=== PATIENT | female | born 1990 | race African-American/Black ===

== ENCOUNTER 2016-12-05 08:35 | Emergency (ER) | payer MEDICAID, OTHER ==
[~2016-12-05] VITALS: Ht 162.6 cm; Wt 74.8 kg
[2016-12-05 09:07] VITALS: BP 102/63
== END 2016-12-05 09:44 | disposition home or self-care (01) ==
LOC: ER 08:37
DX: J02.9 Acute pharyngitis, unspecified (principal)

== ENCOUNTER 2019-06-25 16:19 | Emergency (ER) | payer MEDICAID ==
[~2019-06-25] VITALS: Ht 162.6 cm; Wt 86.2 kg
[2019-06-25 17:20] LABS: Urine Bacteria NONE SEEN /hpf (None Seen); Urine Blood Negative /uL (Negative); Urine Specific Gravity 1.007 (1.001-1.035); Urine WBC 2 /hpf (0 - 5)
[2019-06-25 17:42] LABS: Basophils # (auto) 0.1 uL; Basophils % (auto) 0.7 % (0.0-2.0); Eosinophils # (auto) 0.1 uL; Eosinophils % (auto) 1.4 % (0.0-7.0); Hematocrit 41.3 % (36.0-46.0); Hemoglobin 13.6 g/dL (12.2-16.2); Lymphocytes # (auto) 2.2 uL; Lymphocytes % (auto) 24.3 % (10.0-50.0); Mean Corpuscular Hemoglobin 27.3 pg (28.0-32.0); Mean Corpuscular Volume 82.6 fL (80.0-100.0); Monocytes # (auto) 0.9 uL; Monocytes % (auto) 9.7 % (0.0-12.0); Neutrophils # (auto) 5.7 uL; Neutrophils % (auto) 63.9 % (37.0-80.0); Nucleated Red Blood Cells % 0.1 %; Platelet Count (auto) 267 10^3/uL (140-450); Red Cell Distribution Width 13.6 % (11.8-14.3)
[2019-06-25 18:27] VITALS: BP 120/68
== END 2019-06-25 19:07 | disposition home or self-care (01) ==
LOC: ER 16:29
DX: N39.0 Urinary tract infection, site not specified (principal); Z32.02 Encounter for pregnancy test, result negative
CPT/HCPCS: 36415; 81001; 81025; 84702; 85025

== ENCOUNTER 2019-12-22 14:05 | Observation (INO) | payer MEDICAID | END 2019-12-22 16:40 | disposition home or self-care (01) | DRG 566 | LOC: LDRP 14:05 | PROVIDERS: ADMIT Specialist; ATTEND Specialist | DX: O99.342 Other mental disorders complicating pregnancy, second trimester (principal); O26.893 Other specified pregnancy related conditions, third trimester; G47.00 Insomnia, unspecified; R11.0 Nausea; O99.512 Diseases of the respiratory system complicating pregnancy, second trimester; R06.02 Shortness of breath; Z3A.21 21 weeks gestation of pregnancy | CPT/HCPCS: 59025; 76815; 81002; G0378 ==

== ENCOUNTER 2020-03-07 15:15 | Observation (INO) | payer MEDICAID ==
[2020-03-07] MEDS ORDERED: DEXT1LIQ99 PO (15:51)
[2020-03-07] MEDS ORDERED: PREN-96 PO (15:51)
[2020-03-07] MEDS ORDERED: DOXY25TA9 PO (15:51)
[2020-03-07] MEDS ORDERED: ACET1CAP14 PO (15:51)
== END 2020-03-07 19:00 | disposition home or self-care (01) ==
LOC: LDRP 15:15
PROVIDERS: ADMIT Obstetrics & Gynecology; ATTEND Obstetrics & Gynecology
DX: O98.513 Other viral diseases complicating pregnancy, third trimester (principal); U07.1 COVID-19; O36.8130 Decreased fetal movements, third trimester, not applicable or unspecified; Z3A.32 32 weeks gestation of pregnancy
CPT/HCPCS: 36415; 59025; 76818; 87426; G0378; 81002

== ENCOUNTER 2020-03-07 19:29 | Inpatient (IN) | payer MEDICAID ==
[~2020-03-07] VITALS: Ht 162.6 cm; Wt 100.7 kg
[~2020-03-07 19:29] MED LIST: ACET1CAP14 PO; DEXT1LIQ99 PO; DOXY25TA9 PO; PREN-96 PO
[2020-03-07] MEDS ORDERED: SODIUM CHLORIDE 0.9% 1,000 ML IV ONE (19:45)
[2020-03-07] MEDS ORDERED: ACETAMINOPHEN 325 MG TAB PO ONE (19:45)
[2020-03-07 21:17] LABS: Urine WBC None Seen /hpf (0 - 5)
[2020-03-07 21:22] LABS: Basophils # (auto) 0 10 ^3/uL (0-0.2); Basophils % (auto) 0.2 % (0.0-2.0); Eosinophils # (auto) 0 10 ^3/uL (0-0.8); Eosinophils % (auto) 0.1 % (0.0-7.0); Hematocrit 36.8 % (36.0-46.0); Hemoglobin 12.2 g/dL (12.2-16.2); Lymphocytes # (auto) 0.9 10 ^3/uL (0.4-5.4); Lymphocytes % (auto) 11.9 % (10.0-50.0); Mean Corpuscular Hemoglobin 28.1 pg (28.0-32.0); Mean Corpuscular Hgb Conc. 33.2 g/dL (32.0-36.0); Mean Corpuscular Volume 84.5 fL (80.0-100.0); Monocytes # (auto) 0.8 10 ^3/uL (0-1.3); Monocytes % (auto) 10.2 % (0.0-12.0); Neutrophils # (auto) 6.1 10 ^3/uL (1.6-8.6); Neutrophils % (auto) 77.6 % (37.0-80.0); Nucleated Red Blood Cells % 0.2 %; Platelet Count (auto) 226 10^3/uL (140-450); Red Blood Cells 4.36 10^6/uL (4.0-5.20); White Blood Cell 7.8 10^3/uL (4.4-10.8)
[2020-03-07 21:47] LABS: Albumin 2.8 g/dL (3.4-5.0); Calcium 8.1 mg/dL (8.5-10.1)
[2020-03-07 21:52] LABS: BUN/Creatinine Ratio 2.9; Bilirubin, Total 0.3 mg/dL (0.2-1.0); Total Protein 7.1 g/dL (6.4-8.2)
[2020-03-07 21:58] LABS: Urine Bacteria NONE SEEN /hpf (None Seen); Urine Blood TRACE /uL (Negative); Urine Mucus FEW (None Seen); Urine Specific Gravity 1.029 (1.001-1.035)
[2020-03-07 22:20] LABS: CRP High Sensitivity 2.39 mg/dL (< 0.3)
[2020-03-07] MEDS ORDERED: AZITHROMYCIN 500MG/ 250ML 250 ML IV ONE (22:30)
[2020-03-07] MEDS ORDERED: SODIUM CHLORIDE 0.9% 1,000 ML IV SCH (23:32)
[2020-03-07] MEDS ORDERED: ONDANSETRON HCL 4 MG/2 ML VIAL IV PRN (23:45)
[2020-03-07] MEDS ORDERED: ACETAMINOPHEN 325 MG TAB PO PRN (23:45)
[2020-03-07] MEDS ORDERED: DOCUSATE SOD 100 MG CAP PO PRN (23:45)
[2020-03-08] MEDS ORDERED: POTASSIUM EFFERVESENT TAB 25 MEQ PO ONE (01:30)
[2020-03-08 01:51] VITALS: BP 124/67
[2020-03-08] MEDS: ACETAMINOPHEN 500 MG TAB PO PRN ×4 (02:33→20:50)
[2020-03-08 05:00] VITALS: BP 106/47
[2020-03-08] MEDS: ALBUTEROL SULF HFA 90MCG INH 200DOSE IN SCH ×3 (06:00→14:17)
[2020-03-08 07:34] LABS: Basophils # (auto) 0 10 ^3/uL (0-0.2); Basophils % (auto) 0.3 % (0.0-2.0); Eosinophils # (auto) 0 10 ^3/uL (0-0.8); Eosinophils % (auto) 0.2 % (0.0-7.0); Hematocrit 32.7 % (36.0-46.0); Hemoglobin 10.8 g/dL (12.2-16.2); Lymphocytes # (auto) 0.9 10 ^3/uL (0.4-5.4); Lymphocytes % (auto) 11.8 % (10.0-50.0); Mean Corpuscular Hemoglobin 27.8 pg (28.0-32.0); Mean Corpuscular Volume 84.1 fL (80.0-100.0); Monocytes # (auto) 0.7 10 ^3/uL (0-1.3); Monocytes % (auto) 9.4 % (0.0-12.0); Neutrophils # (auto) 5.9 10 ^3/uL (1.6-8.6); Neutrophils % (auto) 78.3 % (37.0-80.0); Nucleated Red Blood Cells % 0.1 %; Platelet Count (auto) 194 10^3/uL (140-450); Red Blood Cells 3.88 10^6/uL (4.0-5.20); Red Cell Distribution Width 14.1 % (11.8-14.3); White Blood Cell 7.5 10^3/uL (4.4-10.8)
[2020-03-08 07:49] LABS: Magnesium 1.7 mg/dL (1.6-2.6); Potassium 3.3 mmol/L (3.5-5.1)
[2020-03-08 07:56] LABS: Albumin 2.4 g/dL (3.4-5.0); BUN/Creatinine Ratio 1.7; Bilirubin, Total 0.3 mg/dL (0.2-1.0); Calcium 7.9 mg/dL (8.5-10.1); Total Protein 6.2 g/dL (6.4-8.2)
[2020-03-08 09:00] VITALS: BP 107/66
[2020-03-08] MEDS: ASCORBIC ACID 1,000 MG TAB PO SCH (09:56)
[2020-03-08] MEDS: ZINC SULFATE 220mg CAP or TAB PO SCH (09:56)
[2020-03-08] MEDS ORDERED: ENOXAPARIN SOD 40 MG/0.4 ML SYRINGE SC SCH (10:00)
[2020-03-08 13:00] VITALS: BP 120/56
[2020-03-08] MEDS ORDERED: THROAT LOZENGES(CEPASTAT) MT PRN (13:15)
[2020-03-08] MEDS ORDERED: ENOXAPARIN SOD 40 MG/0.4 ML SYRINGE SC ONE ×2 (13:30→14:30)
[2020-03-08] MEDS ORDERED: PRENATAL VITAMIN TAB PO ONE (13:30)
[2020-03-08] MEDS ORDERED: ZINC SULFATE 220mg CAP or TAB PO ONE (13:30)
[2020-03-08] MEDS ORDERED: MAGNESIUM SULFATE 1GM/100ML 100 ML IV ONE (14:15)
[2020-03-08] MEDS ORDERED: AZITHROMYCIN 250 MG TAB PO ONE (14:30)
[2020-03-08] MEDS ORDERED: DexAMETHasone SOD PHOS 10MG/1ML VIAL INJ IV ONE (14:30)
[2020-03-08] MEDS ORDERED: CEFTRIAXONE SODIUM 2 GM in D5W 5% 50 ML IV ONE (14:30)
[2020-03-08 17:00] VITALS: BP 122/67
[2020-03-08] MEDS: ENOXAPARIN SOD 100 MG/1 ML SYRINGE SC SCH (21:31)
[2020-03-08] MEDS: BUDESONIDE (INHALATION) 180 MCG IH IN SCH (22:08)
[2020-03-08 22:21] VITALS: BP 109/57
[2020-03-09] MEDS: ACETAMINOPHEN 500 MG TAB PO PRN ×2 (04:51→21:55)
[2020-03-09 05:15] VITALS: BP 144/66
[2020-03-09 06:38] LABS: Basophils # (auto) 0 10 ^3/uL (0-0.2); Basophils % (auto) 0.1 % (0.0-2.0); Eosinophils # (auto) 0 10 ^3/uL (0-0.8); Hematocrit 34.9 % (36.0-46.0); Hemoglobin 11.2 g/dL (12.2-16.2); Lymphocytes # (auto) 0.8 10 ^3/uL (0.4-5.4); Lymphocytes % (auto) 10.3 % (10.0-50.0); Mean Corpuscular Hemoglobin 27.3 pg (28.0-32.0); Mean Corpuscular Hgb Conc. 32.2 g/dL (32.0-36.0); Mean Corpuscular Volume 84.9 fL (80.0-100.0); Monocytes # (auto) 0.7 10 ^3/uL (0-1.3); Monocytes % (auto) 9.1 % (0.0-12.0); Neutrophils # (auto) 6.3 10 ^3/uL (1.6-8.6); Neutrophils % (auto) 80.5 % (37.0-80.0); Nucleated Red Blood Cells % 0.1 %; Platelet Count (auto) 205 10^3/uL (140-450); Red Blood Cells 4.12 10^6/uL (4.0-5.20); Red Cell Distribution Width 14.4 % (11.8-14.3); White Blood Cell 7.9 10^3/uL (4.4-10.8)
[2020-03-09 06:58] LABS: Magnesium 1.6 mg/dL (1.6-2.6)
[2020-03-09 07:09] LABS: CRP High Sensitivity 5.3 mg/dL (< 0.3)
[2020-03-09] MEDS: BUDESONIDE (INHALATION) 180 MCG IH IN SCH ×2 (08:18→22:21)
[2020-03-09 08:46] VITALS: BP 102/57
[2020-03-09] MEDS ORDERED: cefTRIAXone 1GM/50ML D5W 50 ML IV SCH (09:00)
[2020-03-09] MEDS ORDERED: PRENATAL VITAMIN TAB PO SCH (10:00)
[2020-03-09] MEDS ORDERED: AZITHROMYCIN 250 MG TAB PO SCH (10:00)
[2020-03-09] MEDS ORDERED: DexAMETHasone SOD PHOS 10MG/1ML VIAL INJ IV SCH (10:00)
[2020-03-09] MEDS: ZINC SULFATE 220mg CAP or TAB PO SCH (10:14)
[2020-03-09] MEDS: ASCORBIC ACID 1,000 MG TAB PO SCH (10:14)
[2020-03-09] MEDS: ENOXAPARIN SOD 100 MG/1 ML SYRINGE SC SCH (10:14)
[2020-03-09 13:00] VITALS: BP 114/68
[2020-03-09 16:55] VITALS: BP 119/62
[2020-03-09] MEDS ORDERED: POTASSIUM CHL 20 Meq TABLET PO ONE (17:45)
[2020-03-09] MEDS ORDERED: PROMETHAZINE W/CODEINE 5 ML ORAL SYRUP PO PRN (20:00)
[2020-03-09 22:00] VITALS: BP 111/75
[2020-03-09] MEDS ORDERED: SODIUM CHLORIDE 0.9% 1,000 ML IV SCH (22:15)
== END 2020-03-09 23:05 | disposition short-term general hospital (02) | DRG 566 ==
LOC: ER 19:30 → TELE-EAST 19:31
PROVIDERS: ADMIT Hospitalist; ATTEND Internal Medicine
DX: O98.513 Other viral diseases complicating pregnancy, third trimester (principal); U07.1 COVID-19; J12.89 Other viral pneumonia; E87.6 Hypokalemia; Z3A.32 32 weeks gestation of pregnancy; O99.513 Diseases of the respiratory system complicating pregnancy, third trimester; O99.213 Obesity complicating pregnancy, third trimester; E66.9 Obesity, unspecified; O99.283 Endocrine, nutritional and metabolic diseases complicating pregnancy, third trimester; E78.5 Hyperlipidemia, unspecified; Z82.49 Family history of ischemic heart disease and other diseases of the circulatory system; Z83.3 Family history of diabetes mellitus
CPT/HCPCS: 36415; 36600; 71045; 76818; 80053; 80061; 81001; 82728; 82805; 83036; 83615; 83735; 84132; 85025; 86141; 94640; 96361; 96365; G0378; J0696; J1100; J2405; J7060

== ENCOUNTER 2023-04-27 15:13 | Emergency (ER) | payer MEDICAID ==
[~2023-04-27] VITALS: Ht 162.6 cm; Wt 90.9 kg
[~2023-04-27 15:13] MED LIST changes: -IBUP-1456 PO
[2023-04-27 16:02] VITALS: BP 122/69; PULSE 92; RESP 18; O2SAT 95
[2023-04-27] MEDS ORDERED: IBUPROFEN 800 MG TAB PO ONE (16:30)
[2023-04-27 16:35] VITALS: TEMP 97.4
[2023-04-27] MEDS ORDERED: IBUP-1456 PO (16:51)
== END 2023-04-27 16:59 | disposition home or self-care (01) ==
LOC: ER 15:13
DX: S92.515A Nondisplaced fracture of proximal phalanx of left lesser toe(s), initial encounter for closed fracture (principal); Z79.1 Long term (current) use of non-steroidal anti-inflammatories (NSAID); Z79.899 Other long term (current) drug therapy; W22.8XXA Striking against or struck by other objects, initial encounter; Y93.89 Activity, other specified; Y92.89 Other specified places as the place of occurrence of the external cause; Y99.8 Other external cause status
CPT/HCPCS: 73630

== ENCOUNTER → 2023-04-27 | Emergency (ER) | payer MEDICAID ==
[~2023-04-27] MED LIST changes: +IBUP-1456 PO
== END | disposition left against medical advice (07) ==
LOC: ER 12:01
DX: M79.673 Pain in unspecified foot (principal); Z53.21 Procedure and treatment not carried out due to patient leaving prior to being seen by health care provider